=== PATIENT | female | born 1960 | race Caucasian/White ===

== ENCOUNTER → 2024-08-26 09:16 | Outpatient (REF) | payer MEDICARE, OTHER, SELFPAY ==
[2024-08-26 09:52] LABS: % Basophils 0.7 % (0-2); % Eosinophils 2.1 % (0-6); % Immature Granulocytes 0.3 % (0-0.5); % Lymphocytes 22.9 % (20.5-51.1); % Monocytes 5.5 % (1.7-9.3); % Neutrophils 68.5 % (42.2-75.2); Absolute Basophils 0.1 10^3/uL (0-0.2); Absolute Eosinophils 0.2 10^3/uL (0-0.7); Absolute Monocytes 0.5 10^3/uL (0.1-0.6); Absolute Neutrophils 6.1 10^3/uL (1.4-6.5); Hematocrit 37.2 % (37.0-47.0); Hemoglobin 12.3 g/dL (12.0-16.0); Mean Corp Hgb Conc. 33.1 g/dL (33.0-37.0); Mean Corpuscular Hgb 28.2 pg (27.0-31.0); Mean Corpuscular Volume 85.3 fL (81.0-99.0); Mean Platelet Volume 10.6 fL (7.4-10.4); Nucleated Red Blood Cells % 0 %; Platelet Count 326 10^3/uL (130-400); Red Blood Cell Count 4.36 10^6/uL (4.20-5.40); Red Cell Dist. Width 13.1 % (11.5-14.5); White Blood Cell Count 8.9 10^3/uL (4.8-10.8)
[2024-08-26 09:57] LABS: Urine Albumin Trace (Neg - Trace); Urine Bilirubin Negative (Negative); Urine Character Slightly Cloudy (Clear); Urine Color Yellow; Urine Glucose Negative (Negative); Urine Ketone Negative (Negative); Urine Leukocyte Trace (Negative); Urine Nitrite Negative (Negative); Urine Occult Blood 2+ (Negative); Urine Specific Gravity 1.025 (<1.030); Urine Urobilinogen Negative (Neg - 1+)
[2024-08-26 10:09] LABS: Urine Calcium Oxalate Crystals Present; Urine Squamous Cell 16-20 /LPF (Few)
[2024-08-26 10:10] LABS: Urine Mucus Few
[2024-08-26 10:11] LABS: Urine Bacteria Few (Negative)
[2024-08-26 10:38] LABS: Carbon Dioxide 25 mmol/L (22-30); Chloride 105 mmol/L (98-107); eGFR > 60.00
[2024-08-26 10:43] LABS: Glycohemoglobin (HgbA1c) 7.6 % (4.0-5.6)
[2024-08-26 10:47] LABS: Blood Urea Nitrogen 26 mg/dl (7-17); Glucose 125 mg/dl (70-99); Sodium 144 mmol/L (135-145)
== END ==
LOC: REG 09:16
PROVIDERS: ATTENDING PHYSICIAN Internal Medicine Cardiovascular Disease; FAMILY PHYSICIAN Physician Assistant; REFERRING PHYSICIAN Urology
DX: D41.01 Neoplasm of uncertain behavior of right kidney (principal); Z87.440 Personal history of urinary (tract) infections; N20.0 Calculus of kidney; Z00.00 Encounter for general adult medical examination without abnormal findings; Z13.0 Encounter for screening for diseases of the blood and blood-forming organs and certain disorders involving the immune mechanism; E11.9 Type 2 diabetes mellitus without complications; E87.5 Hyperkalemia
CPT/HCPCS: 36415; 80048; 81003; 81015; 83036; 85025; 87086

== ENCOUNTER → 2024-12-11 09:25 | Outpatient (REF) | payer MEDICARE, OTHER, SELFPAY ==
[2024-12-11 10:15] LABS: % Basophils 0.8 % (0-2); % Eosinophils 4.6 % (0-6); % Immature Granulocytes 0.3 % (0-0.5); % Lymphocytes 23.5 % (20.5-51.1); % Monocytes 6.1 % (1.7-9.3); % Neutrophils 64.7 % (42.2-75.2); Absolute Basophils 0.1 10^3/uL (0-0.2); Absolute Eosinophils 0.4 10^3/uL (0-0.7); Absolute Lymphocytes 2.2 10^3/uL (1.2-3.4); Absolute Monocytes 0.6 10^3/uL (0.1-0.6); Absolute Neutrophils 5.9 10^3/uL (1.4-6.5); Hematocrit 40.1 % (37.0-47.0); Hemoglobin 13.2 g/dL (12.0-16.0); Mean Corp Hgb Conc. 32.9 g/dL (33.0-37.0); Mean Corpuscular Hgb 28.3 pg (27.0-31.0); Mean Corpuscular Volume 86.1 fL (81.0-99.0); Mean Platelet Volume 10.6 fL (7.4-10.4); Nucleated Red Blood Cells % 0 %; Platelet Count 345 10^3/uL (130-400); Red Blood Cell Count 4.66 10^6/uL (4.20-5.40); Red Cell Dist. Width 12.8 % (11.5-14.5); White Blood Cell Count 9.2 10^3/uL (4.8-10.8)
[2024-12-11 10:35] LABS: ALT (SGPT) 27 U/L (0-35); AST (SGOT) 24 U/L (14-36); Albumin 4.5 g/dl (3.5-5.0); Alkaline Phosphatase 67 U/L (38-126); Blood Urea Nitrogen 24 mg/dl (7-17); Calcium 9.5 mg/dl (8.4-10.2); Carbon Dioxide 28 mmol/L (22-30); Chloride 104 mmol/L (98-107); Glucose 131 mg/dl (70-99); HDL Cholesterol 48 mg/dl; LDL Cholesterol, Calculated 147 mg/dl; Potassium 4.2 mmol/L (3.5-5.1); Sodium 142 mmol/L (135-145); Total Bilirubin 0.7 mg/dl (0.2-1.3); Total Cholesterol 216 mg/dl (50-199); Total Protein 7.2 g/dl (6.3-8.2); Triglyceride 106 mg/dl (10-149); Very Low Density Lipoprotein 21 mg/dl (0-30); eGFR > 60.00
== END ==
LOC: REG 09:25
PROVIDERS: ATTENDING PHYSICIAN Family Medicine; FAMILY PHYSICIAN Physician Assistant
DX: E11.65 Type 2 diabetes mellitus with hyperglycemia (principal)
CPT/HCPCS: 36415; 80053; 80061; 83036; 85025

== ENCOUNTER → 2025-04-23 11:24 | Outpatient (REF) | payer MEDICARE, OTHER, SELFPAY | LOC: HWRAD 11:24 | PROVIDERS: ATTENDING PHYSICIAN Physician Assistant | DX: R93.89 Abnormal findings on diagnostic imaging of other specified body structures (principal) | CPT/HCPCS: 76830; 76856 ==

== ENCOUNTER 2025-06-03 05:55 | Day surgery (SDC) | payer OTHER, MEDICARE, SELFPAY ==
[2025-05-28 09:19] LABS: Hematocrit 40.2 % (37.0-47.0); Hemoglobin 13.0 g/dL (12.0-16.0); Mean Corp Hgb Conc. 32.3 g/dL (33.0-37.0); Mean Corpuscular Volume 86.3 fL (81.0-99.0); Nucleated Red Blood Cells % 0 %; Platelet Count 283 10^3/uL (130-400); Red Cell Dist. Width 13.0 % (11.5-14.5)
[2025-05-28 09:48] LABS: ALT (SGPT) 24 U/L (0-35); AST (SGOT) 22 U/L (14-36); Albumin 4.6 g/dl (3.5-5.0); Alkaline Phosphatase 55 U/L (38-126); Blood Urea Nitrogen 22 mg/dl (7-17); Calcium 9.8 mg/dl (8.4-10.2); Carbon Dioxide 29 mmol/L (22-30); Chloride 107 mmol/L (98-107); Glucose 156 mg/dl (70-99); Potassium 5.2 mmol/L (3.5-5.1); Sodium 144 mmol/L (135-145); Total Protein 7.5 g/dl (6.3-8.2); eGFR > 60.00
[2025-06-03 06:10] VITALS: BMI 28.2
[2025-06-03 06:11] VITALS: BMI 28.2
[2025-06-03 06:16] VITALS: BP 136/87
[2025-06-03 06:22] LABS: Glucose - Point of Care 148 mg/dl (70-99)
[2025-06-03 08:52] VITALS: BP 133/71
[2025-06-03 09:00] VITALS: BP 122/62
[2025-06-03 09:06] LABS: Glucose - Point of Care 149 mg/dl (70-99)
[2025-06-03 09:15] VITALS: BP 141/71
[2025-06-03 09:30] VITALS: BP 141/77
[2025-06-03 09:52] VITALS: BP 155/77
== END 2025-06-03 10:07 | disposition home or self-care (01) ==
LOC: SDS 05:55
PROVIDERS: ATTENDING PHYSICIAN Surgery
DX: K62.89 Other specified diseases of anus and rectum (principal); K62.3 Rectal prolapse; K62.6 Ulcer of anus and rectum; K64.8 Other hemorrhoids; K64.4 Residual hemorrhoidal skin tags; L29.0 Pruritus ani; R19.4 Change in bowel habit
CPT/HCPCS: 45990; 36415; 80053; 82962; 85025; 88305; 88341; 88342

== ENCOUNTER → 2025-06-10 08:56 | Outpatient (REF) | payer OTHER, MEDICARE, SELFPAY ==
[2025-06-10 09:31] LABS: Hematocrit 39.6 % (37.0-47.0); Hemoglobin 13.5 g/dL (12.0-16.0); Mean Corp Hgb Conc. 34.1 g/dL (33.0-37.0); Mean Corpuscular Volume 84.1 fL (81.0-99.0); Nucleated Red Blood Cells % 0 %; Platelet Count 290 10^3/uL (130-400); Red Cell Dist. Width 13.0 % (11.5-14.5)
[2025-06-10 10:23] LABS: ALT (SGPT) 23 U/L (0-35); AST (SGOT) 21 U/L (14-36); Albumin 4.7 g/dl (3.5-5.0); Alkaline Phosphatase 56 U/L (38-126); Blood Urea Nitrogen 23 mg/dl (7-17); Calcium 9.6 mg/dl (8.4-10.2); Carbon Dioxide 28 mmol/L (22-30); Chloride 109 mmol/L (98-107); Glucose 127 mg/dl (70-99); HDL Cholesterol 53 mg/dl; LDL Cholesterol, Calculated 111 mg/dl; Potassium 4.8 mmol/L (3.5-5.1); Sodium 143 mmol/L (135-145); Total Protein 7.7 g/dl (6.3-8.2); Very Low Density Lipoprotein 26 mg/dl (0-30); eGFR > 60.00
[2025-06-10 14:14] LABS: Glycohemoglobin (HgbA1c) 7.4 % (4.0-5.6)
== END ==
LOC: REG 08:56
PROVIDERS: ATTENDING PHYSICIAN Physician Assistant; FAMILY PHYSICIAN Physician Assistant
DX: E11.65 Type 2 diabetes mellitus with hyperglycemia (principal)
CPT/HCPCS: 36415; 80053; 80061; 83036; 85025

== ENCOUNTER 2025-09-13 07:20 | Outpatient (RCR) | payer OTHER, MEDICARE, SELFPAY | END 2025-09-24 23:59 | disposition home or self-care (01) | LOC: RPT 07:20 | PROVIDERS: ATTENDING PHYSICIAN Surgery; FAMILY PHYSICIAN Physician Assistant | DX: R15.9 Full incontinence of feces (principal); R15.2 Fecal urgency; Z73.6 Limitation of activities due to disability; N81.6 Rectocele; K62.3 Rectal prolapse | CPT/HCPCS: 97112; 97163; 97530 ==

== ENCOUNTER 2025-10-27 06:38 | Outpatient (RCR) | payer OTHER, MEDICARE, SELFPAY | END 2025-10-27 23:59 | disposition home or self-care (01) | LOC: RPT 06:38 | PROVIDERS: ATTENDING PHYSICIAN Surgery; FAMILY PHYSICIAN Physician Assistant | DX: R15.9 Full incontinence of feces (principal); R15.2 Fecal urgency; Z73.6 Limitation of activities due to disability; N81.6 Rectocele; K62.3 Rectal prolapse | CPT/HCPCS: 97014; 97110; 97112; 97140; 97530 ==

== ENCOUNTER 2025-11-16 07:28 | Outpatient (RCR) | payer OTHER, MEDICARE, SELFPAY | END 2025-11-16 23:59 | disposition home or self-care (01) | LOC: RPT 07:28 | PROVIDERS: ATTENDING PHYSICIAN Surgery; FAMILY PHYSICIAN Physician Assistant | DX: R15.9 Full incontinence of feces (principal); R15.2 Fecal urgency; Z73.6 Limitation of activities due to disability; N81.6 Rectocele; K62.3 Rectal prolapse | CPT/HCPCS: 97014; 97112; 97140 ==

== ENCOUNTER → 2025-11-22 11:05 | Outpatient (REF) | payer OTHER, MEDICARE, SELFPAY | LOC: CPAP 11:05 | PROVIDERS: ATTENDING PHYSICIAN Obstetrics & Gynecology | DX: Z11.51 Encounter for screening for human papillomavirus (HPV) (principal); Z01.419 Encounter for gynecological examination (general) (routine) without abnormal findings | CPT/HCPCS: 87624 ==